=== PATIENT | male | born 1940 | race Caucasian/White ===

== ENCOUNTER → 2018-11-06 12:35 | Outpatient (CLI) | payer MEDICARE, OTHER, SELFPAY ==
--- NOTE | 2018-11-06 12:39 | CT_ITS ---
STUDY: CT CHEST WITHOUT CONTRAST REASON FOR EXAM: Male, 78 years old. Cough/COPD. Shortness of breath. RADIATION DOSAGE (If Supplied By Facility): CTDIvol = ( 20.11 ) mGy, DLP = ( 708.62 ) mGycm TECHNIQUE: Transaxial imaging was performed without the administration of intravenous contrast material. Coronal and sagittal reconstructions were performed. Individualized dose optimization techniques were used for this CT. COMPARISON: None. FINDINGS: Mild pulmonary hyperinflation with flattening of the hemidiaphragms. No centrilobular cysts. No paraseptal cysts. No bullous, blebs or emphysema. Minimal subsegmental atelectasis or scarring in the right lung base. Calcified granuloma in the left lung base. No suspicious pulmonary nodules or infiltrates. There is no demonstrated pleural abnormality. Normal cardiac size. Extensive coronary artery calcifications in all coronary arteries. No pericardial fluid. Normal mediastinum. Normal hilar regions. Normal unenhanced pulmonary arteries. Atherosclerotic calcifications along the transverse aorta and descending thoracic aorta. No acute osseous abnormality. There is no demonstrated abnormality of the visualized upper abdomen. CT/Chest without Contrast IMPRESSION: 1. Minimal subsegmental atelectasis in right lung base. 2. No suspicious pulmonary nodules or mass in the chest. 3. Extensive atherosclerotic calcifications in all coronary arteries. 4. No acute abnormality in the chest. 5. Mild COPD, airway predominant. Electronically Signed: Edmond Mo MD at 9:17 EDT , Service support ,
== END ==
PROVIDERS: Family Provider Internal Medicine; PCP Internal Medicine; Referring Provider Internal Medicine Pulmonary Disease; Visit Provider Internal Medicine Pulmonary Disease
DX: R05 Cough (principal); J44.9 Chronic obstructive pulmonary disease, unspecified
CPT/HCPCS: 71250

== ENCOUNTER 2020-09-17 12:09 | Outpatient (RCR) | payer MEDICARE, OTHER, SELFPAY | END 2020-09-17 23:59 | LOC: IMMUN 12:09 | PROVIDERS: PCP Internal Medicine; Visit Provider Family Medicine | DX: Z23 Encounter for immunization (principal) | CPT/HCPCS: 0011A; 0012A; 91301 ==